=== PATIENT | male | born 1940 | race Caucasian/White ===

== ENCOUNTER 2018-06-08 08:56 | Emergency (ER) | payer OTHER ==
--- NOTE | 2018-06-08 09:58 | EDPHY ---
H & P Stated Complaint: left knee pain while coming done stairs Time Seen by Provider: 06/08/18 09:07 HPI/ROS: CHIEF COMPLAINT: Left knee pain HISTORY OF PRESENT ILLNESS: 77-year-old gentleman with a history of intermittent, atrial fibrillation, pulmonary emboli, DVTs, multiple orthopedic surgeries presents reporting that yesterday, when he is walking down the stairs , he felt a sudden popping sensation in his left knee. Denies twisting the leg , denies falling on the knee, denies any direct trauma to the knee. He had pain when he tried to walk on the leg. He has noted some swelling in the back of his calf as well as in the popliteal fossa. No fever, chills, chest pain, shortness of breath, palpitations, vomiting, diarrhea, urinary complaints, headache, lightheadedness. REVIEW OF SYSTEMS: A comprehensive 10 system review of systems was reviewed and is otherwise negative aside from elements mentioned in the history of present illness and medical decision making. PAST MEDICAL HISTORY: Intermittent atrial fibrillation, history of DVTs and PEs , no longer on anticoagulation except aspirin. Recent knee arthroscopy on the left to "clean up". SOCIAL HISTORY: Here with his son. GENERAL APPEARANCE: Pleasant, alert, no distress. FOCUSED EXAM OF left knee and left lower extremity: No tenderness to palpation over the left knee. Slightly swollen anteriorly with some tenderness in the posterior fossa and swelling. Left calf slightly swollen compared to the right. Good distal pulses. Brisk capillary refill. Slight limitation in range of motion secondary to pain and fullness. No ligamentous instability. Exam is somewhat limited secondary to patient's pain and slight effusion. - Personal History Tetanus Vaccine Date: <10 YRS - Medical/Surgical History Hx Asthma: No Hx Chronic Respiratory Disease: No Hx Diabetes: No Hx Cardiac Disease: Yes Hx Renal Disease: No Hx Cirrhosis: No Hx Alcoholism: No Hx HIV/AIDS: No Hx Splenectomy or Spleen Trauma: No Other PMH: HIP REPLACEMENT , BILATERAL PE'S, INTERMITTENT A FIB WITH REQUIRED CARDIOVERSION IN PAST - Social History Smoking Status: Never smoked Constitutional: Initial Vital Signs Temperature (C) 36.6 C 06/08/18 09:11 Heart Rate 57 L 06/08/18 09:11 Respiratory Rate 18 06/08/18 09:11 Blood Pressure 117/79 06/08/18 09:11 O2 Sat (%) 94 06/08/18 09:11 O2 Delivery Mode Room Air Allergies/Adverse Reactions: No Known Allergies Allergy (Verified 06/08/18 09:10) Home Medications: Medication Instructions Recorded Aspirin [Aspirin 81mg (*)] 81 mg PO DAILY 01/04/12 Atorvastatin Calcium [Lipitor 10 10 mg PO DAILY18 01/04/12 mg (*)] Multivitamins [Multivitamin (*)] 1 each PO DAILY 01/04/12 [place]-3 Fatty Acids/Fish Oil [Fish 1,000 mg PO DAILY 01/04/12 Oil 1,000 mg Capsule] Selenium [Selenium 200mcg (*)] 200 mcg PO DAILY 01/04/12 Acetaminophen [Tylenol 325mg (*)] 325 - 650 mg PO Q4 PRN #0 tab 04/02/14 Ferrous Sulfate [Slow Fe 140 MG] 140 mg PO DAILY #30 tab.er 04/02/14 Ondansetron Odt [Zofran Odt 4 mg 4 - 8 mg PO Q6 PRN #0 tab 04/02/14 (*)] Medical Decision Making - Diagnostics Imaging Results: Imaging Impressions Extremity Venous Study 06/08/18 09:29 Impression: No deep venous thrombosis left leg. Small left knee joint effusion. Results called to Dr. Rivas at 11:40 AM. Knee X-Ray 06/08/18 09:29 Impression: Mild medial compartment joint space narrowing. ED Course/Re-evaluation: 77-year-old male with a pop heard and felt and his left knee while going down the stairs. X-rays are negative for any acute findings. Ultrasound: No deep venous thrombus, no Elkins cyst noted. Small effusion. Discussed with the patient and his family. Recommend ice, rest, mild compression, and elevation with a follow-up re-evaluation by Dr. Fitzgerald towards the end of next week. Understands reasons to return to the emergency department. Differential Diagnosis: Differential diagnosis for the patient's injury was considered including but not limited to knee sprain, ligamentous injury, ruptured Elkins cyst, osteoarthritis, fracture. Departure - Departure Disposition: Home, Routine, Self-Care Clinical Impression: Knee effusion, left Left knee pain Qualifiers: Chronicity: acute Qualified Code(s): M25.562 - Pain in left knee Condition: Good Instructions: Knee Pain (ED), Swollen Joint (ED) Additional Instructions: Please follow up with Dr. Fitzgerald for further evaluation of your knee within the next week. In the meantime, ice, elevation, and mild compression with an Nick wrap will be helpful for your symptoms. You may take Tylenol or ibuprofen as needed for pain. The ultrasound today does not demonstrate a ruptured Elkins cyst nor does it demonstrate a deep venous thrombus. The x-ray today demonstrates no fracture and a small joint effusion. Depending on your symptoms and your exam, further advanced imaging studies such as an MRI may be needed. Referrals: Frankie Huff MD [Primary Care Provider] - As per Instructions Power Fitzgerald MD [Medical Doctor] - 5-7 days, call for appt.
[2018-06-08 12:20] VITALS: BP 132/86
== END 2018-06-08 12:00 | disposition home or self-care (01) ==
LOC: CED 08:56
DX: M25.562 Pain in left knee (principal); M25.462 Effusion, left knee
CPT/HCPCS: 73564-PO; 93971-PO; 99284-ER